=== PATIENT | female | born 1960 | race Two or more races ===

== ENCOUNTER 2018-02-21 07:50 | Emergency (ER) | payer SELFPAY ==
[~2018-02-21] VITALS: Ht 177.8 cm; Wt 52.2 kg
[2018-02-21 08:00] VITALS: BP 147/67
[2018-02-21] MEDS ORDERED: IV NS 0.9% 500 ML BAG IV ONE (08:30)
== END 2018-02-21 08:32 | disposition home or self-care (01) ==
LOC: ER 07:52
DX: K21.9 Gastro-esophageal reflux disease without esophagitis (principal); Z87.442 Personal history of urinary calculi
CPT/HCPCS: 99283; A4606; Z7610